=== PATIENT | male | born 1935 | race Caucasian/White ===

== ENCOUNTER 2020-10-17 16:50 | Inpatient (IN) ==
[2020-10-17] MEDS ORDERED: Acetaminophen 325 MG TABLET PO PRN (21:45)
[2020-10-17] MEDS ORDERED: Naloxone 0.4 MG/ML INJ IVP PRN (21:45)
[2020-10-17] MEDS ORDERED: Ondansetron 4 MG/2 ML VIAL IVP PRN (21:45)
[2020-10-17] MEDS ORDERED: Ipratropium/Albuterol Neb 3 ML IH PRN (21:51)
[2020-10-17] MEDS: 0.9 % Sodium Chloride 1,000 ML IVC SCH (22:14)
[2020-10-18 00:35] LABS: Bilirubin,Urine Negative (Negative); Blood,Urine Moderate (Negative); Budding Yeast,Urine Moderate per hpf (None Seen); Clarity,Urine Turbid (Clear); Color,Urine Light-Yellow (Yellow); Glucose,Urine (UA) Normal (Normal); Hyaline Casts,Urine Few per lpf (None Seen); Ketones,Urine 10 mg/dL (Negative); Leukocyte Esterase,Urine Small (Negative); Mucus,Urine Few per lpf (None-Few); Nitrite,Urine Negative (Negative); Protein,Urine 30 mg/dL (Neg-Trace); RBC,Urine 15-30 per hpf (0-3); Specific Gravity,Urine 1.019 (1.010-1.025); Squamous Epithelial Cell,Urine Few per hpf (None-Few)
[2020-10-18] MEDS: 0.9 % Sodium Chloride 1,000 ML IVC SCH (05:21)
[2020-10-18] MEDS: Carbidopa/Levodopa 25/100 TABLET PO SCH ×3 (08:17→22:11)
[2020-10-18] MEDS ORDERED: Perflutren Lipid Microsphere 1.3 ML in 0.9 % Sodium Chloride 8.7 ML IVP PRN (08:23)
[2020-10-18 08:29] LABS: Basophils % 0.5 %; Eosinophils # 0.1 K/mcL (0.0-0.6); Eosinophils % 1.6 %; Hematocrit 36.9 % (37.5-50.1); Hemoglobin 12.5 g/dL (12.9-16.9); Immature Granulocytes % 0.3 % (0-4); Lymphocytes # 1.8 K/mcL (0.6-4.6); Lymphocytes % 28.9 %; Mean Corpuscular HGB Conc 33.9 g/dL (31.6-35.5); Mean Corpuscular Hemoglobin 29.1 pg (28.0-33.3); Mean Platelet Volume 11.1 fL (9.4-12.4); Monocytes # 0.6 K/mcL (0.0-1.3); Neutrophils # 3.8 K/mcL (1.6-8.9); Platelet Count 158 K/mcL (140-400); Red Blood Count 4.29 M/mcL (4.19-5.50); Red Cell Distribution Width 14.7 % (11.5-14.5); Segmented Neutrophils % 59.7 %; White Blood Count 6.4 K/mcL (4.3-11.1)
[2020-10-18 08:31] LABS: Prothrombin Time 11.8 Seconds (9.4-12.1)
[2020-10-18 09:00] LABS: BUN/Creatinine Ratio 20 (6-26); Blood Urea Nitrogen 21 mg/dL (8-23); Calcium 9.3 mg/dL (8.6-10.3); Carbon Dioxide 24 mEq/L (23-29); Chloride 108 mEq/L (98-107); Glucose 88 mg/dL (70-105); Magnesium 1.9 mg/dL (1.6-2.6); Osmolality,Calculated 290 (280-300); Phosphorous 2.4 mg/dL (2.7-4.5); Potassium 3.9 mEq/L (3.5-5.1); Sodium 139 mEq/L (136-145); Troponin I 0.03 ng/mL (< 0.04); eGFR For African Americans > 60 (> 60); eGFR For Non-African Americans > 60 (> 60)
[2020-10-18] MEDS ORDERED: *HR* Enoxaparin 30 MG/0.3 ML SYRINGE SQ SCH (09:00)
[2020-10-18] MEDS: Fluconazole 100 MG TABLET PO SCH (09:46)
[2020-10-19 01:28] LABS: Basophils % 0.4 %; Eosinophils # 0.1 K/mcL (0.0-0.6); Eosinophils % 1.4 %; Hematocrit 37.7 % (37.5-50.1); Immature Granulocytes % 0.3 % (0-4); Lymphocytes # 1.7 K/mcL (0.6-4.6); Lymphocytes % 23.9 %; Mean Corpuscular HGB Conc 31.8 g/dL (31.6-35.5); Mean Corpuscular Hemoglobin 27.7 pg (28.0-33.3); Mean Corpuscular Volume 87.1 fL (83.0-100.0); Mean Platelet Volume 10.8 fL (9.4-12.4); Monocytes # 0.7 K/mcL (0.0-1.3); Neutrophils # 4.5 K/mcL (1.6-8.9); Platelet Count 158 K/mcL (140-400); Red Blood Count 4.33 M/mcL (4.19-5.50); Red Cell Distribution Width 14.8 % (11.5-14.5); White Blood Count 7.1 K/mcL (4.3-11.1)
[2020-10-19 01:42] LABS: BUN/Creatinine Ratio 18 (6-26); Blood Urea Nitrogen 19 mg/dL (8-23); Calcium 9.4 mg/dL (8.6-10.3); Carbon Dioxide 26 mEq/L (23-29); Chloride 107 mEq/L (98-107); Glucose 99 mg/dL (70-105); Magnesium 1.8 mg/dL (1.6-2.6); Osmolality,Calculated 290 (280-300); Phosphorous 2.9 mg/dL (2.7-4.5); Potassium 4.2 mEq/L (3.5-5.1); Sodium 139 mEq/L (136-145); eGFR For African Americans > 60 (> 60); eGFR For Non-African Americans > 60 (> 60)
[2020-10-19] MEDS: *HR* Enoxaparin 40 MG/0.4 ML SYRINGE SQ SCH (06:19)
[2020-10-19] MEDS: Fluconazole 100 MG TABLET PO SCH (09:00)
[2020-10-19] MEDS: Carbidopa/Levodopa 25/100 TABLET PO SCH ×3 (09:00→20:37)
[2020-10-19] MEDS: hydroCHLOROthiazide 25 MG TABLET PO SCH (09:00)
[2020-10-19] MEDS: cefTRIAXone 1,000 MG in Water for inj. (sterile) 10 ML IVP SCH (09:00)
[2020-10-19] MEDS ORDERED: Cyanocobalamin (B-12) 1,000 MCG/ML VIAL IM ONE (13:29)
[2020-10-19] MEDS: Cyanocobalamin (B-12) 1,000 MCG TABLET PO SCH (18:12)
[2020-10-20 01:52] LABS: Basophils % 0.6 %; Eosinophils # 0.1 K/mcL (0.0-0.6); Eosinophils % 1.5 %; Hematocrit 38.4 % (37.5-50.1); Hemoglobin 12.4 g/dL (12.9-16.9); Immature Granulocytes % 0.3 % (0-4); Lymphocytes # 2.1 K/mcL (0.6-4.6); Lymphocytes % 28.8 %; Mean Corpuscular HGB Conc 32.3 g/dL (31.6-35.5); Mean Corpuscular Volume 86.7 fL (83.0-100.0); Mean Platelet Volume 11.1 fL (9.4-12.4); Monocytes # 0.8 K/mcL (0.0-1.3); Monocytes % 10.9 %; Neutrophils # 4.2 K/mcL (1.6-8.9); Platelet Count 167 K/mcL (140-400); Red Blood Count 4.43 M/mcL (4.19-5.50); Red Cell Distribution Width 14.7 % (11.5-14.5); Segmented Neutrophils % 57.9 %; White Blood Count 7.2 K/mcL (4.3-11.1)
[2020-10-20 02:10] LABS: BUN/Creatinine Ratio 18 (6-26); Blood Urea Nitrogen 17 mg/dL (8-23); Calcium 9.9 mg/dL (8.6-10.3); Carbon Dioxide 26 mEq/L (23-29); Chloride 104 mEq/L (98-107); Glucose 90 mg/dL (70-105); Osmolality,Calculated 289 (280-300); Sodium 139 mEq/L (136-145); eGFR For African Americans > 60 (> 60); eGFR For Non-African Americans > 60 (> 60)
[2020-10-20] MEDS: *HR* Enoxaparin 40 MG/0.4 ML SYRINGE SQ SCH (06:24)
[2020-10-20 08:07] LABS: Thyroid Stimulating Hormone 2.661 mcIU/mL (0.340-5.600)
[2020-10-20] MEDS: hydroCHLOROthiazide 25 MG TABLET PO SCH (08:28)
[2020-10-20] MEDS: cefTRIAXone 1,000 MG in Water for inj. (sterile) 10 ML IVP SCH (08:28)
[2020-10-20] MEDS: Cyanocobalamin (B-12) 1,000 MCG TABLET PO SCH (08:29)
[2020-10-20] MEDS: Fluconazole 100 MG TABLET PO SCH (08:29)
[2020-10-20] MEDS: Carbidopa/Levodopa 25/100 TABLET PO SCH ×3 (08:29→21:50)
[2020-10-21 04:44] LABS: Basophils % 0.4 %; Eosinophils # 0.1 K/mcL (0.0-0.6); Eosinophils % 1.8 %; Hematocrit 37.6 % (37.5-50.1); Hemoglobin 12.1 g/dL (12.9-16.9); Immature Granulocytes % 0.3 % (0-4); Lymphocytes # 2.3 K/mcL (0.6-4.6); Lymphocytes % 33.8 %; Mean Corpuscular HGB Conc 32.2 g/dL (31.6-35.5); Mean Corpuscular Hemoglobin 28.1 pg (28.0-33.3); Mean Corpuscular Volume 87.2 fL (83.0-100.0); Mean Platelet Volume 11.5 fL (9.4-12.4); Monocytes # 0.9 K/mcL (0.0-1.3); Monocytes % 13.3 %; Neutrophils # 3.4 K/mcL (1.6-8.9); Platelet Count 175 K/mcL (140-400); Red Blood Count 4.31 M/mcL (4.19-5.50); Red Cell Distribution Width 14.8 % (11.5-14.5); Segmented Neutrophils % 50.4 %; White Blood Count 6.8 K/mcL (4.3-11.1)
[2020-10-21 05:01] LABS: Calcium 10.2 mg/dL (8.6-10.3); Potassium 3.9 mEq/L (3.5-5.1)
[2020-10-21] MEDS: *HR* Enoxaparin 40 MG/0.4 ML SYRINGE SQ SCH (06:32)
[2020-10-21] MEDS: Carbidopa/Levodopa 25/100 TABLET PO SCH ×3 (07:35→20:14)
[2020-10-21] MEDS: cefTRIAXone 1,000 MG in Water for inj. (sterile) 10 ML IVP SCH (07:35)
[2020-10-21] MEDS: Fluconazole 100 MG TABLET PO SCH (07:35)
[2020-10-21] MEDS: Cyanocobalamin (B-12) 1,000 MCG TABLET PO SCH (07:35)
[2020-10-21] MEDS: hydroCHLOROthiazide 25 MG TABLET PO SCH (07:53)
[2020-10-21] MEDS: 0.9 % Sodium Chloride 1,000 ML IVC SCH ×2 (09:15→16:49)
[2020-10-21 16:12] LABS: BUN/Creatinine Ratio 32 (6-26); Blood Urea Nitrogen 39 mg/dL (8-23); Calcium 10.6 mg/dL (8.6-10.3); Carbon Dioxide 26 mEq/L (23-29); Chloride 103 mEq/L (98-107); Glucose 87 mg/dL (70-105); Osmolality,Calculated 295 (280-300); Sodium 138 mEq/L (136-145); eGFR For African Americans > 60 (> 60); eGFR For Non-African Americans 56 (> 60)
[2020-10-22] MEDS: 0.9 % Sodium Chloride 1,000 ML IVC SCH (01:00)
[2020-10-22] MEDS: *HR* Enoxaparin 40 MG/0.4 ML SYRINGE SQ SCH (04:55)
[2020-10-22 07:13] VITALS: BP 155/75; PULSE 72; TEMP 97.4; O2SAT 95
[2020-10-22] MEDS: Fluconazole 100 MG TABLET PO SCH (08:04)
[2020-10-22] MEDS: Carbidopa/Levodopa 25/100 TABLET PO SCH (08:04)
[2020-10-22] MEDS: Cyanocobalamin (B-12) 1,000 MCG TABLET PO SCH (08:04)
[2020-10-22] MEDS: cefTRIAXone 1,000 MG in Water for inj. (sterile) 10 ML IVP SCH (08:05)
[2020-10-22 10:23] LABS: Adenovirus Not Detected (Not Detect); Bordetella Pertussis Not Detected (Not Detect); Chlamydophila pneumoniae Not Detected (Not Detect); Coronavirus 229E Not Detected (Not Detect); Coronavirus HKU1 Not Detected (Not Detect); Coronavirus NL63 Not Detected (Not Detect); Coronavirus OC43 Not Detected (Not Detect); Human Metapneumovirus Not Detected (Not Detect); Human Rhinovirus/Enterovirus Not Detected (Not Detect); Influenza A Subtype 2009 H1 Not Detected (Not Detect); Influenza B Not Detected (Not Detect); Mycoplasma pneumoniae Not Detected (Not Detect); Parainfluenza Virus 1 Not Detected (Not Detect); Parainfluenza Virus 2 Not Detected (Not Detect); Parainfluenza Virus 3 Not Detected (Not Detect); Parainfluenza Virus 4 Not Detected (Not Detect); Respiratory Syncytial Virus Not Detected (Not Detect); SARS-CoV-2 Not Detected (Not Detect)
== END 2020-10-22 12:00 | disposition other institution (70) | DRG 57 ==
LOC: 2ANU
PROVIDERS: ADMIT Pharmacist; ATTEND Pharmacist

== ENCOUNTER 2021-02-19 17:18 | Inpatient (IN) ==
[2021-02-19] MEDS ORDERED: Acetaminophen 325 MG TABLET PO PRN (23:42)
[2021-02-19] MEDS ORDERED: Naloxone 0.4 MG/ML INJ IVP PRN (23:42)
[2021-02-19] MEDS ORDERED: Ondansetron 4 MG/2 ML VIAL IVP PRN (23:42)
[2021-02-20] MEDS: Levalbuterol Neb 1.25 MG/3 ML IH SCH ×6 (01:10→20:18)
[2021-02-20 02:55] LABS: Bilirubin,Urine Negative (Negative); Blood,Urine Trace (Negative); Clarity,Urine Clear (Clear); Color,Urine Colorless (Yellow); Glucose,Urine (UA) Normal (Normal); Ketones,Urine Negative (Negative); Leukocyte Esterase,Urine Negative (Negative); Mucus,Urine Few per lpf (None-Few); Nitrite,Urine Negative (Negative); Protein,Urine 50 mg/dL (Neg-Trace); RBC,Urine 0-3 per hpf (0-3); Specific Gravity,Urine 1.022 (1.010-1.025); Squamous Epithelial Cell,Urine Few per hpf (None-Few); Urobilinogen,Urine Normal (Normal); WBC,Urine 0-3 per hpf (0-3)
[2021-02-20 07:25] LABS: Estimated Average Glucose 114 mg/dl; Hemoglobin A1C 5.6 %
[2021-02-20 07:26] LABS: Hematocrit 31.2 % (37.5-50.1); Hemoglobin 10.5 g/dL (12.9-16.9); Mean Corpuscular HGB Conc 33.7 g/dL (31.6-35.5); Mean Corpuscular Hemoglobin 29.1 pg (28.0-33.3); Mean Corpuscular Volume 86.4 fL (83.0-100.0); Mean Platelet Volume 11.3 fL (9.4-12.4); Platelet Count 174 K/mcL (140-400); Red Blood Count 3.61 M/mcL (4.19-5.50); Red Cell Distribution Width 14.9 % (11.5-14.5); White Blood Count 9.6 K/mcL (4.3-11.1)
[2021-02-20 07:34] LABS: Activated Partial Thrombo Time 32.2 Seconds (26.0-36.0); INR 1.3; Prothrombin Time 14.9 Seconds (9.4-12.1)
[2021-02-20 08:12] LABS: Folate 5.8 ng/mL (3.0-16.0)
[2021-02-20 08:20] LABS: BUN/Creatinine Ratio 19 (6-26); Blood Urea Nitrogen 20 mg/dL (8-23); Calcium 9.4 mg/dL (8.6-10.3); Carbon Dioxide 20 mEq/L (23-29); Chloride 108 mEq/L (98-107); Glucose 81 mg/dL (70-105); Magnesium 1.5 mg/dL (1.6-2.6); Osmolality,Calculated 290 (280-300); Potassium 3.8 mEq/L (3.5-5.1); Sodium 139 mEq/L (136-145); Troponin I 0.03 ng/mL (< 0.04); eGFR For African Americans > 60 (> 60); eGFR For Non-African Americans > 60 (> 60)
[2021-02-20 08:28] LABS: Chol/HDL Ratio 1.7 (0-4.9)
[2021-02-20] MEDS ORDERED: Magnesium Oxide 400 MG TABLET PO ONE (11:59)
[2021-02-20] MEDS ORDERED: Azithromycin 500 MG in 0.9 % Sodium Chloride 250 ML IVPB SCH (13:00)
[2021-02-20] MEDS: Carbidopa/Levodopa 25/100 TABLET PO SCH ×3 (13:15→21:02)
[2021-02-20] MEDS: Folic Acid 1 MG TABLET PO SCH (13:15)
[2021-02-20] MEDS: amLODIPine 5 MG TABLET PO SCH (13:15)
[2021-02-20] MEDS: Cyanocobalamin (B-12) 1,000 MCG TABLET PO SCH (13:15)
[2021-02-20] MEDS: cefTRIAXone 1,000 MG in 0.9 % Sodium Chloride Mini Bag 100 ML IVPB SCH (13:17)
[2021-02-21] MEDS: Levalbuterol Neb 1.25 MG/3 ML IH SCH ×6 (00:31→20:40)
[2021-02-21 05:47] LABS: Hematocrit 30.7 % (37.5-50.1); Hemoglobin 9.7 g/dL (12.9-16.9); Mean Corpuscular HGB Conc 31.6 g/dL (31.6-35.5); Mean Corpuscular Hemoglobin 27.9 pg (28.0-33.3); Mean Corpuscular Volume 88.2 fL (83.0-100.0); Mean Platelet Volume 11.2 fL (9.4-12.4); Platelet Count 175 K/mcL (140-400); Red Blood Count 3.48 M/mcL (4.19-5.50)
[2021-02-21 05:57] LABS: BUN/Creatinine Ratio 21 (6-26); Blood Urea Nitrogen 21 mg/dL (8-23); Calcium 9.4 mg/dL (8.6-10.3); Carbon Dioxide 24 mEq/L (23-29); Chloride 108 mEq/L (98-107); Glucose 82 mg/dL (70-105); Osmolality,Calculated 292 (280-300); Potassium 3.7 mEq/L (3.5-5.1); Sodium 140 mEq/L (136-145); eGFR For African Americans > 60 (> 60); eGFR For Non-African Americans > 60 (> 60)
[2021-02-21] MEDS: Folic Acid 1 MG TABLET PO SCH ×2 (08:19→12:50)
[2021-02-21] MEDS: amLODIPine 5 MG TABLET PO SCH ×2 (08:19→12:50)
[2021-02-21] MEDS: Cyanocobalamin (B-12) 1,000 MCG TABLET PO SCH ×2 (08:19→12:51)
[2021-02-21] MEDS: Carbidopa/Levodopa 25/100 TABLET PO SCH ×4 (08:19→20:15)
[2021-02-21] MEDS: cefTRIAXone 1,000 MG in 0.9 % Sodium Chloride Mini Bag 100 ML IVPB SCH (08:20)
[2021-02-21] MEDS ORDERED: levoFLOXacin 750 MG/150 ML 750 MG/150 ML BAG IVPB SCH (12:00)
[2021-02-22] MEDS: Levalbuterol Neb 1.25 MG/3 ML IH SCH ×7 (00:08→23:56)
[2021-02-22] MEDS: *HR* LORazepam 2 MG/ML VIAL IVP ONE ×2 (04:52→04:56)
[2021-02-22] MEDS: cefTRIAXone 1,000 MG in 0.9 % Sodium Chloride Mini Bag 100 ML IVPB SCH (08:49)
[2021-02-22 08:54] LABS: Hematocrit 30.5 % (37.5-50.1)
[2021-02-22] MEDS: Folic Acid 1 MG TABLET PO SCH (09:51)
[2021-02-22] MEDS: amLODIPine 5 MG TABLET PO SCH (09:54)
[2021-02-22] MEDS: Cyanocobalamin (B-12) 1,000 MCG TABLET PO SCH ×2 (09:54→09:55)
[2021-02-22] MEDS: Carbidopa/Levodopa 25/100 TABLET PO SCH ×3 (09:55→20:55)
[2021-02-22] MEDS ORDERED: QUEtiapine Fumarate 25 MG TABLET PO SCH (21:00)
[2021-02-23] MEDS: Haloperidol Lactate 5 MG/ML VIAL IVP PRN (00:48)
[2021-02-23] MEDS ORDERED: *HR* LORazepam 2 MG/ML VIAL IVP ONE (02:27)
[2021-02-23] MEDS: Levalbuterol Neb 1.25 MG/3 ML IH SCH ×5 (04:05→20:40)
[2021-02-23] MEDS: amLODIPine 5 MG TABLET PO SCH (09:00)
[2021-02-23] MEDS: Carbidopa/Levodopa 25/100 TABLET PO SCH ×3 (09:00→21:27)
[2021-02-23] MEDS: Folic Acid 1 MG TABLET PO SCH (09:00)
[2021-02-23] MEDS: Cyanocobalamin (B-12) 1,000 MCG TABLET PO SCH (09:00)
[2021-02-23] MEDS: cefTRIAXone 1,000 MG in 0.9 % Sodium Chloride Mini Bag 100 ML IVPB SCH (09:15)
[2021-02-23] MEDS: QUEtiapine Fumarate 100 MG TABLET PO SCH (21:27)
[2021-02-24] MEDS: Levalbuterol Neb 1.25 MG/3 ML IH SCH ×7 (00:01→23:17)
[2021-02-24] MEDS: Cyanocobalamin (B-12) 1,000 MCG TABLET PO SCH (09:01)
[2021-02-24] MEDS: amLODIPine 5 MG TABLET PO SCH (09:01)
[2021-02-24] MEDS: Carbidopa/Levodopa 25/100 TABLET PO SCH ×4 (09:01→22:09)
[2021-02-24] MEDS: Folic Acid 1 MG TABLET PO SCH (09:01)
[2021-02-24] MEDS: cefTRIAXone 1,000 MG in 0.9 % Sodium Chloride Mini Bag 100 ML IVPB SCH (09:02)
[2021-02-24] MEDS: QUEtiapine Fumarate 100 MG TABLET PO SCH (21:52)
[2021-02-25] MEDS: Haloperidol Lactate 5 MG/ML VIAL IVP PRN (02:32)
[2021-02-25] MEDS: Levalbuterol Neb 1.25 MG/3 ML IH SCH ×6 (04:11→23:21)
[2021-02-25] MEDS: amLODIPine 5 MG TABLET PO SCH (09:07)
[2021-02-25] MEDS: Folic Acid 1 MG TABLET PO SCH (09:08)
[2021-02-25] MEDS: Carbidopa/Levodopa 25/100 TABLET PO SCH ×3 (09:08→19:40)
[2021-02-25] MEDS: Cyanocobalamin (B-12) 1,000 MCG TABLET PO SCH (09:08)
[2021-02-25] MEDS: Melatonin 3 MG TABLET PO SCH (19:40)
[2021-02-25] MEDS: QUEtiapine Fumarate 100 MG TABLET PO SCH (19:40)
[2021-02-26] MEDS: Levalbuterol Neb 1.25 MG/3 ML IH SCH ×6 (03:26→23:21)
[2021-02-26] MEDS: Folic Acid 1 MG TABLET PO SCH (07:54)
[2021-02-26] MEDS: amLODIPine 5 MG TABLET PO SCH (07:55)
[2021-02-26] MEDS: Carbidopa/Levodopa 25/100 TABLET PO SCH ×3 (07:55→20:16)
[2021-02-26] MEDS: Cyanocobalamin (B-12) 1,000 MCG TABLET PO SCH (07:55)
[2021-02-26] MEDS: QUEtiapine Fumarate 100 MG TABLET PO SCH (20:14)
[2021-02-26] MEDS: Melatonin 3 MG TABLET PO SCH (20:16)
[2021-02-27] MEDS: Levalbuterol Neb 1.25 MG/3 ML IH SCH ×6 (04:26→23:40)
[2021-02-27] MEDS: amLODIPine 5 MG TABLET PO SCH (09:41)
[2021-02-27] MEDS: Folic Acid 1 MG TABLET PO SCH (09:41)
[2021-02-27] MEDS: Carbidopa/Levodopa 25/100 TABLET PO SCH ×3 (09:41→19:42)
[2021-02-27] MEDS: Cyanocobalamin (B-12) 1,000 MCG TABLET PO SCH (09:42)
[2021-02-27] MEDS: QUEtiapine Fumarate 100 MG TABLET PO SCH (19:42)
[2021-02-27] MEDS: Melatonin 3 MG TABLET PO SCH (19:42)
[2021-02-28] MEDS: Levalbuterol Neb 1.25 MG/3 ML IH SCH ×4 (05:03→15:54)
[2021-02-28 07:19] VITALS: O2SAT 93
[2021-02-28] MEDS: amLODIPine 5 MG TABLET PO SCH (10:50)
[2021-02-28] MEDS: Folic Acid 1 MG TABLET PO SCH (10:51)
[2021-02-28] MEDS: Carbidopa/Levodopa 25/100 TABLET PO SCH ×2 (10:51→15:34)
[2021-02-28] MEDS: Cyanocobalamin (B-12) 1,000 MCG TABLET PO SCH (10:51)
[2021-02-28 12:32] LABS: Influenza A PCR Negative (Negative); Influenza B PCR Negative (Negative); Resp. Syncytial Virus PCR Negative (Negative)
[2021-02-28 12:40] LABS: SARS-CoV-2 by PCR (In House) Negative (Negative)
[2021-02-28 14:29] VITALS: BP 106/48; PULSE 73; TEMP 97.5
[2021-02-28] MEDS ORDERED: FLU Vac QV 21-22 (6Month+)/PF 0.5 ML SYRINGE IM ONE (15:04)
[2021-02-28] MEDS ORDERED: Moderna Covid-19 Vaccine 100MCG/0.5mL IM ONE (15:04)
== END 2021-02-28 16:21 | DRG 193 ==
LOC: 3ANU → SUATTDRO 21:05 → 3ANU 02-24 16:09
PROVIDERS: ADMIT Internal Medicine; ATTEND Internal Medicine

== ENCOUNTER 2021-06-23 13:24 | Inpatient (IN) ==
[2021-06-23] MEDS ORDERED: Naloxone 0.4 MG/ML INJ IVP PRN (16:53)
[2021-06-23] MEDS ORDERED: 0.9 % Sodium Chloride 1,000 ML IVC SCH (17:45)
[2021-06-23] MEDS: cefTRIAXone 2,000 MG in 0.9 % Sodium Chloride 20 ML IVP SCH (17:53)
[2021-06-23] MEDS: Carbidopa/Levodopa 25/100 TABLET PO SCH (21:27)
[2021-06-24] MEDS ORDERED: MetroNIDAZOLE 500 MG/100 ML 500 MG/100 ML BAG IVPB SCH
[2021-06-24] MEDS ORDERED: QUEtiapine Fumarate 25 MG TABLET PO PRN (00:06)
[2021-06-24] MEDS ORDERED: Haloperidol Lactate 5 MG/ML VIAL IM ONE ×2 (00:16→01:04)
[2021-06-24] MEDS: MetroNIDAZOLE 500 MG/100 ML 500 MG/100 ML BAG IVPB SCH ×3 (04:34→21:44)
[2021-06-24 07:26] LABS: Basophils % 0.1 %; Hematocrit 36.5 % (37.5-50.1); Hemoglobin 12.2 g/dL (12.9-16.9); Immature Granulocytes % 0.5 % (0-4); Lymphocytes # 1.1 K/mcL (0.6-4.6); Mean Corpuscular HGB Conc 33.4 g/dL (31.6-35.5); Mean Corpuscular Hemoglobin 27.5 pg (28.0-33.3); Mean Corpuscular Volume 82.4 fL (83.0-100.0); Mean Platelet Volume 10.5 fL (9.4-12.4); Monocytes # 0.7 K/mcL (0.0-1.3); Monocytes % 8.7 %; Neutrophils # 5.9 K/mcL (1.6-8.9); Platelet Count 174 K/mcL (140-400); Red Blood Count 4.43 M/mcL (4.19-5.50); Red Cell Distribution Width 16.5 % (11.5-14.5); Segmented Neutrophils % 76.7 %; White Blood Count 7.7 K/mcL (4.3-11.1)
[2021-06-24] MEDS: Carbidopa/Levodopa 25/100 TABLET PO SCH ×3 (08:31→18:55)
[2021-06-24] MEDS: amLODIPine 5 MG TABLET PO SCH (08:31)
[2021-06-24] MEDS: Cyanocobalamin (B-12) 1,000 MCG TABLET PO SCH (08:31)
[2021-06-24] MEDS: cefTRIAXone 2,000 MG in 0.9 % Sodium Chloride 20 ML IVP SCH (08:37)
[2021-06-24 08:38] LABS: BUN/Creatinine Ratio 24 (6-26); Blood Urea Nitrogen 18 mg/dL (8-23); Calcium 9.4 mg/dL (8.6-10.3); Carbon Dioxide 23 mEq/L (23-29); Chloride 108 mEq/L (98-107); Glucose 78 mg/dL (70-105); Osmolality,Calculated 293 (280-300); Potassium 4.1 mEq/L (3.5-5.1); Sodium 141 mEq/L (136-145); eGFR For African Americans > 60 (> 60); eGFR For Non-African Americans > 60 (> 60)
[2021-06-24] MEDS ORDERED: Pantoprazole 40 MG VIAL IVP ONE (10:02)
[2021-06-24] MEDS: *HR* Dextrose 50 % in Water (Syg) 50 ML SYRINGE IVP PRN (12:36)
[2021-06-24] MEDS: D5% in 0.9% NACL 1,000 ML IVC SCH (17:19)
[2021-06-24] MEDS ORDERED: OLANZapine 10 MG VIAL IM ONE (17:50)
[2021-06-24] MEDS ORDERED: QUEtiapine Fumarate 25 MG TABLET PO SCH (21:00)
[2021-06-25] MEDS ORDERED: Dextrose 4 GM Chewable Tablets PO PRN ×2 (00:08)
[2021-06-25] MEDS ORDERED: *HR* Dextrose 50 % in Water (Syg) 50 ML SYRINGE IVP PRN (00:09)
[2021-06-25] MEDS: *HR* Dextrose 50 % in Water (Syg) 50 ML SYRINGE IVP PRN ×2 (00:11→04:35)
[2021-06-25] MEDS: D5% in Water 1,000 ML IVC PRN (01:30)
[2021-06-25] MEDS: MetroNIDAZOLE 500 MG/100 ML 500 MG/100 ML BAG IVPB SCH ×3 (03:42→21:44)
[2021-06-25] MEDS ORDERED: *HR* LORazepam 2 MG/ML VIAL IVP ONE (04:28)
[2021-06-25 06:27] LABS: Basophils % 0.5 %; Eosinophils # 0.1 K/mcL (0.0-0.6); Hematocrit 32.2 % (37.5-50.1); Immature Granulocytes % 0.5 % (0-4); Lymphocytes # 1.8 K/mcL (0.6-4.6); Lymphocytes % 29.8 %; Mean Corpuscular HGB Conc 32.6 g/dL (31.6-35.5); Mean Corpuscular Hemoglobin 27.7 pg (28.0-33.3); Mean Platelet Volume 10.3 fL (9.4-12.4); Monocytes # 0.7 K/mcL (0.0-1.3); Monocytes % 12.4 %; Neutrophils # 3.3 K/mcL (1.6-8.9); Platelet Count 163 K/mcL (140-400); Red Blood Count 3.79 M/mcL (4.19-5.50); Red Cell Distribution Width 16.3 % (11.5-14.5); Segmented Neutrophils % 55.8 %
[2021-06-25 06:31] LABS: Hemoglobin 10.5 g/dL (12.9-16.9)
[2021-06-25 07:37] LABS: BUN/Creatinine Ratio 17 (6-26); Blood Urea Nitrogen 15 mg/dL (8-23); Carbon Dioxide 24 mEq/L (23-29); Chloride 109 mEq/L (98-107); Glucose 118 mg/dL (70-105); Osmolality,Calculated 292 (280-300); Potassium 3.5 mEq/L (3.5-5.1); Sodium 140 mEq/L (136-145); eGFR For African Americans > 60 (> 60); eGFR For Non-African Americans > 60 (> 60)
[2021-06-25] MEDS: D5% in 0.9% NACL 1,000 ML IVC SCH (13:10)
[2021-06-25] MEDS: Carbidopa/Levodopa 25/100 TABLET PO SCH ×3 (14:43→21:45)
[2021-06-25] MEDS: cefTRIAXone 2,000 MG in 0.9 % Sodium Chloride 20 ML IVP SCH (14:43)
[2021-06-25] MEDS: amLODIPine 5 MG TABLET PO SCH (14:43)
[2021-06-25] MEDS: Cyanocobalamin (B-12) 1,000 MCG TABLET PO SCH (14:44)
[2021-06-25] MEDS: QUEtiapine Fumarate 25 MG TABLET PO SCH (17:19)
[2021-06-25] MEDS: Melatonin 3 MG TABLET PO SCH (21:45)
[2021-06-26] MEDS: MetroNIDAZOLE 500 MG/100 ML 500 MG/100 ML BAG IVPB SCH ×3 (04:41→20:44)
[2021-06-26] MEDS: D5% in Water 1,000 ML IVC PRN (04:44)
[2021-06-26 06:15] LABS: Basophils % 0.3 %; Eosinophils # 0.1 K/mcL (0.0-0.6); Eosinophils % 1.9 %; Immature Granulocytes % 0.3 % (0-4); Lymphocytes # 1.7 K/mcL (0.6-4.6); Lymphocytes % 29.8 %; Mean Corpuscular HGB Conc 32.7 g/dL (31.6-35.5); Mean Corpuscular Hemoglobin 27.8 pg (28.0-33.3); Mean Corpuscular Volume 84.9 fL (83.0-100.0); Mean Platelet Volume 10.1 fL (9.4-12.4); Monocytes # 0.7 K/mcL (0.0-1.3); Monocytes % 11.4 %; Neutrophils # 3.3 K/mcL (1.6-8.9); Platelet Count 165 K/mcL (140-400); Red Blood Count 4.36 M/mcL (4.19-5.50); Red Cell Distribution Width 16.2 % (11.5-14.5); Segmented Neutrophils % 56.3 %; White Blood Count 5.8 K/mcL (4.3-11.1)
[2021-06-26 06:23] LABS: Hemoglobin 12.1 g/dL (12.9-16.9)
[2021-06-26 06:41] LABS: BUN/Creatinine Ratio 15 (6-26); Blood Urea Nitrogen 11 mg/dL (8-23); Calcium 9.1 mg/dL (8.6-10.3); Carbon Dioxide 25 mEq/L (23-29); Chloride 110 mEq/L (98-107); Glucose 92 mg/dL (70-105); Osmolality,Calculated 291 (280-300); Potassium 3.7 mEq/L (3.5-5.1); Sodium 141 mEq/L (136-145); eGFR For African Americans > 60 (> 60); eGFR For Non-African Americans > 60 (> 60)
[2021-06-26] MEDS: QUEtiapine Fumarate 25 MG TABLET PO SCH ×2 (10:04→15:46)
[2021-06-26] MEDS: Cyanocobalamin (B-12) 1,000 MCG TABLET PO SCH (10:05)
[2021-06-26] MEDS: Carbidopa/Levodopa 25/100 TABLET PO SCH ×3 (10:05→20:43)
[2021-06-26] MEDS: cefTRIAXone 2,000 MG in 0.9 % Sodium Chloride 20 ML IVP SCH (11:55)
[2021-06-26] MEDS: amLODIPine 5 MG TABLET PO SCH (12:00)
[2021-06-26] MEDS: Melatonin 3 MG TABLET PO SCH (20:43)
[2021-06-27] MEDS: MetroNIDAZOLE 500 MG/100 ML 500 MG/100 ML BAG IVPB SCH ×2 (05:29→15:45)
[2021-06-27] MEDS: *HR* Dextrose 50 % in Water (Syg) 50 ML SYRINGE IVP PRN (05:39)
[2021-06-27 05:50] LABS: Basophils % 0.3 %; Eosinophils # 0.1 K/mcL (0.0-0.6); Eosinophils % 1.6 %; Hematocrit 39.8 % (37.5-50.1); Immature Granulocytes % 0.5 % (0-4); Lymphocytes % 32.5 %; Mean Corpuscular HGB Conc 32.7 g/dL (31.6-35.5); Mean Corpuscular Volume 85.6 fL (83.0-100.0); Mean Platelet Volume 10.4 fL (9.4-12.4); Monocytes # 0.6 K/mcL (0.0-1.3); Monocytes % 9.9 %; Neutrophils # 3.4 K/mcL (1.6-8.9); Nucleated Red Blood Cells 0.3 /100 WBC (0); Platelet Count 185 K/mcL (140-400); Red Blood Count 4.65 M/mcL (4.19-5.50); Red Cell Distribution Width 16.3 % (11.5-14.5); Segmented Neutrophils % 55.2 %; White Blood Count 6.2 K/mcL (4.3-11.1)
[2021-06-27 06:16] LABS: BUN/Creatinine Ratio 12 (6-26); Blood Urea Nitrogen 10 mg/dL (8-23); Calcium 9.7 mg/dL (8.6-10.3); Carbon Dioxide 27 mEq/L (23-29); Chloride 105 mEq/L (98-107); Glucose 69 mg/dL (70-105); Osmolality,Calculated 289 (280-300); Potassium 3.8 mEq/L (3.5-5.1); Sodium 141 mEq/L (136-145); eGFR For African Americans > 60 (> 60); eGFR For Non-African Americans > 60 (> 60)
[2021-06-27] MEDS: cefTRIAXone 2,000 MG in 0.9 % Sodium Chloride 20 ML IVP SCH (09:33)
[2021-06-27] MEDS: Carbidopa/Levodopa 25/100 TABLET PO SCH ×3 (09:34→22:02)
[2021-06-27] MEDS: amLODIPine 5 MG TABLET PO SCH (09:34)
[2021-06-27] MEDS: Cyanocobalamin (B-12) 1,000 MCG TABLET PO SCH (09:34)
[2021-06-27] MEDS: QUEtiapine Fumarate 25 MG TABLET PO SCH ×2 (09:34→15:45)
[2021-06-27] MEDS ORDERED: E-Z-PAQUE (BARIUM SULF) SUSP 1 BOTTLE PO ONE (15:28)
[2021-06-27] MEDS ORDERED: E-Z-HD (BARIUM SULF) SUSPENSION PO ONE (15:28)
[2021-06-27] MEDS ORDERED: 0.9 % Sodium Chloride 500 ML IVC ONE (19:51)
[2021-06-27] MEDS ORDERED: Albumin 25% 25gram/100mL 25 GM/100 ML IV.SOLN IVPB ONE (20:58)
[2021-06-27] MEDS: Melatonin 3 MG TABLET PO SCH (22:02)
[2021-06-28] MEDS: MetroNIDAZOLE 500 MG/100 ML 500 MG/100 ML BAG IVPB SCH ×2 (00:46→09:56)
[2021-06-28 06:33] LABS: Basophils % 0.6 %; Eosinophils # 0.1 K/mcL (0.0-0.6); Eosinophils % 2.7 %; Hematocrit 34.5 % (37.5-50.1); Immature Granulocytes % 0.6 % (0-4); Lymphocytes # 1.5 K/mcL (0.6-4.6); Lymphocytes % 28.7 %; Mean Corpuscular Hemoglobin 27.9 pg (28.0-33.3); Mean Corpuscular Volume 84.6 fL (83.0-100.0); Monocytes # 0.7 K/mcL (0.0-1.3); Neutrophils # 2.8 K/mcL (1.6-8.9); Platelet Count 155 K/mcL (140-400); Red Blood Count 4.08 M/mcL (4.19-5.50); Red Cell Distribution Width 16.2 % (11.5-14.5); Segmented Neutrophils % 54.4 %; White Blood Count 5.2 K/mcL (4.3-11.1)
[2021-06-28 06:34] LABS: Hemoglobin 11.4 g/dL (12.9-16.9)
[2021-06-28 06:54] LABS: BUN/Creatinine Ratio 18 (6-26); Blood Urea Nitrogen 16 mg/dL (8-23); Calcium 9.3 mg/dL (8.6-10.3); Carbon Dioxide 27 mEq/L (23-29); Chloride 108 mEq/L (98-107); Glucose 80 mg/dL (70-105); Osmolality,Calculated 292 (280-300); Potassium 3.7 mEq/L (3.5-5.1); Sodium 141 mEq/L (136-145); eGFR For African Americans > 60 (> 60); eGFR For Non-African Americans > 60 (> 60)
[2021-06-28 07:35] VITALS: BP 170/77; PULSE 55; TEMP 97.9; O2SAT 95
[2021-06-28] MEDS: cefTRIAXone 2,000 MG in 0.9 % Sodium Chloride 20 ML IVP SCH (09:58)
[2021-06-28] MEDS: Carbidopa/Levodopa 25/100 TABLET PO SCH (09:59)
[2021-06-28] MEDS: Cyanocobalamin (B-12) 1,000 MCG TABLET PO SCH (09:59)
[2021-06-28] MEDS: amLODIPine 5 MG TABLET PO SCH (09:59)
[2021-06-28] MEDS: QUEtiapine Fumarate 25 MG TABLET PO SCH (09:59)
[2021-06-28 11:54] LABS: Influenza A PCR Negative (Negative); Influenza B PCR Negative (Negative); Resp. Syncytial Virus PCR Negative (Negative)
[2021-06-28 11:57] LABS: SARS-CoV-2 by PCR (In House) Negative (Negative)
== END 2021-06-28 14:10 | DRG 179 ==
LOC: 3ANU → SUATTDRO 06-24 12:51
PROVIDERS: ADMIT Internal Medicine; ATTEND Student in an Organized Health Care Education/Training Program